=== PATIENT | female | born 1960 | race Caucasian/White ===

== ENCOUNTER 2017-07-06 08:09 | Emergency (ER) | payer OTHER ==
--- NOTE | 2017-07-06 08:20 | PDOC ---
History of Present Illness - General Chief Complaint: Syncope/Near Syncope Stated Complaint: SYNCOPAL EPISODE Time Seen by Provider: 07/06/17 08:12 History Source: Patient Exam Limitations: No Limitations - History of Present Illness Initial Comments: 07/06/17 08:18 57 y/o female presents to the ER with a syncopal episode. Denies chest pain, palpitations, back pain, N/V/D, fever or chills. No headache or head injury. No SOB. Feels fine now. Went down stairs and was going up stairs when she had some abdominal cramping and passed out. Patient states that she at times gets abdominal cramping and suffers from constipation. However, no abdominal pain. Severity: mild Associated Symptoms: denies: cough, fever/chills, headaches, nausea/vomiting, shortness of breath Past History - Past Medical History Allergies/Adverse Reactions: Allergies Allergy/AdvReac Type Severity Reaction Status Date / Time No Known Allergies Allergy Unverified 07/06/17 09:10 Home Medications: Ambulatory Orders Bisacodyl [Dulcolax] 5 mg PO PRN 07/06/17 Multivit-Min/Iron Fum/Folic AC [Rtfpv-Dxjphvo-Cotcivbj Tablet] 1 each PO DAILY 07/06/17 Ubidecarenone [Co Q-10] 100 mg PO DAILY 07/06/17 Review of Systems - Review of Systems Able to Perform ROS?: Yes Is the patient limited Bangladeshi proficient: No Constitutional: No: Chills, Fever HEENTM: No: Blurred Vision Respiratory: No: Cough, Shortness of Breath Cardiac (ROS): No: Chest Pain, Lightheadedness, Palpitations ABD/GI: No: Nausea, Vomiting : No: Dysuria Musculoskeletal: No: Back Pain All Other Systems: Reviewed and Negative *Physical Exam - Physical Exam General Appearance: Yes: Nourished, Appropriately Dressed. No: Apparent Distress HEENT: positive: EOMI, OLIVER, Normal ENT Inspection, Normal Voice, Pharynx Normal Neck: positive: Trachea midline, Normal Thyroid, Supple. negative: Rigid Respiratory/Chest: positive: Lungs Clear, Normal Breath Sounds. negative: Chest Tender, Respiratory Distress Cardiovascular: positive: Regular Rhythm, Regular Rate, S1, S2. negative: Edema , JVD, Murmur Vascular Pulses: Femoral (R): 4+, Femoral (L): 4+, Carotid (R): 4+, Carotid (L) : 4+, Dorsalis-Pedis (R): 4+, Doralis-Pedis (L): 4+ Gastrointestinal/Abdominal: positive: Normal Bowel Sounds, Flat, Soft. negative : Tender, Organomegaly, Pulsatile Mass Lymphatic: negative: Adenopathy, Tenderness, Other Musculoskeletal: positive: Normal Inspection. negative: CVA Tenderness Extremity: positive: Normal Capillary Refill, Normal Inspection, Normal Range of Motion Integumentary: positive: Normal Color, Dry, Warm Neurologic: positive: electrophysiology scientist II-XII NML intact, Fully Oriented, Alert, Normal Mood/ Affect (strength 5+/5 b/l in UE and LE, no foacl deficits noted), Normal Response, Motor Strength 5/5 Heart Score/ECG Review - History History: Slightly suspicious - Electrocardiogram EKG: Normal - Age Age: 45-65 - Risk Factors Based on the list above the patient has:: No risk factors known - ECG Intrepretation Rhythm: Regular Rhythm Comment:: 07/06/17 08:22 NSR at 71, no STEMI - ECG Impressions Normal ECG: Yes ED Treatment Course - LABORATORY CBC & Chemistry Diagram: 07/06/17 08:57 07/06/17 08:57 - ADDITIONAL ORDERS Additional order review: 07/06/17 10:19 Pt is feeling better, labs normal. Will discharge patient. Pt is in agreement with plan. May have had a vasovagal symcope If worsen return to ER 07/06/17 10:21 CT head negative for bleed CXR NAD *DC/Admit/Observation/Transfer Diagnosis at time of Disposition: Vasovagal syncope - Discharge Dispostion Disposition: HOME Condition at time of disposition: Stable Admit: No - Referrals - Patient Instructions Printed Discharge Instructions: DI for Syncope in Adults (Fainting) Additional Instructions: Fluids, rest, Tylenol If worsen return to ER - Post Discharge Activity Forms/Work/School Notes: Back to Work
[2017-07-06 09:05] LABS: PLATELET COUNT 262 K/MM3 (134-434); WHITE BLOOD COUNT 7.9 K/mm3 (4.0-10.8)
[2017-07-06 09:14] LABS: BASO % 0.5 % (0-2.0); EOS % 1.3 % (0-4.5); HEMATOCRIT 37.7 % (32.4-45.2); LYMPH % 20.2 % (8-40); MCH 28.1 pg (25.7-33.7); MCHC 31.8 g/dl (32.0-36.0); MEAN CELL VOLUME 88.3 fl (80-96); MEAN PLT VOLUME 9.9 fl (7.5-11.1); MONO % 6.1 % (3.8-10.2); NEUT % 71.9 % (42.8-82.8); RBC 4.27 M/mm3 (3.60-5.2); RDW 14.2 % (11.6-15.6)
[2017-07-06 09:29] VITALS: TEMP 98.5; BMI 23.0
[2017-07-06 10:10] LABS: ALBUMIN 3.6 g/dl (3.5-5.0); ALK PHOS 64 U/L (32-92); ANION GAP 8 (8-16); BILIRUBIN,TOTAL 0.5 mg/dl (0.2-1.0); BLOOD UREA NITROGEN 12 mg/dl (7-18); CALCIUM 9.1 mg/dl (8.4-10.2); CHLORIDE 103 mmol/L (98-107); CO2 24 mmol/L (22-28); CREATININE 0.8 mg/dl (0.6-1.3); GLUCOSE,RANDOM 110 mg/dl (74-106); POTASSIUM 3.5 mmol/L (3.5-5.1); SGOT/AST 37 U/L (10-42); SGPT/ALT 29 U/L (10-40); SODIUM 135 mmol/L (136-145); TOT PROT 6.3 g/dl (6.4-8.3)
[2017-07-06 10:28] VITALS: BP 120/73; PULSE 70
--- NOTE | 2017-07-07 15:56 | EKG ---
Test Reason : Blood Pressure : / mmHG Vent. Rate : 069 BPM Atrial Rate : 069 BPM P-R Int : 182 ms QRS Dur : 086 ms QT Int : 400 ms P-R-T Axes : 067 056 060 degrees QTc Int : 428 ms NORMAL SINUS RHYTHM NO PREVIOUS ECGS AVAILABLE Confirmed by MD CHLOE, SAVANNAH ([id number]) on 07/07/2017 3:56:04 PM Referred By: BONILLA SANDERSON Confirmed By:SAVANNAH CORONA MD
== END 2017-07-06 10:38 | disposition home or self-care (01) ==
LOC: FER 08:09
DX: R55 Syncope and collapse (principal)
CPT/HCPCS: 36415; 70450-TC; 71045-TC; 80053; 84484; 85025; 93005; 99284-25

== ENCOUNTER 2019-03-04 09:35 | Emergency (ER) | payer OTHER ==
[2019-03-04 09:43] VITALS: BP 122/83; PULSE 77; TEMP 98.8; BMI 25.6
--- NOTE | 2019-03-04 10:21 | PDOC ---
History of Present Illness - General Chief Complaint: Pain, Acute Stated Complaint: RIGHT WRIST PAIN Time Seen by Provider: 03/04/19 09:38 - History of Present Illness Initial Comments: 03/04/19 10:00 58yo F no PMH presents from home with 1 week of pain and swelling along ulnar side of dorsal R forearm and wrist. Gradual onset, constant, worsening, wakes up from pain, associated swelling of ulnar side of forearm/wrist and tingling of hand at night, worse with wrist movement, no improvement with vaporub or serbian ointment, no medications tried. Denies trauma or heavy lifting or excessive typing or repetitive movements. Denies hx of similar sx. L-handed. Works as teacher and lifts heavy books. Denies numbness, weakness, decreased ROM , warmth, elbow pain, hand pain, fever, chills, fatigue, headache, dizziness, vision changes, shortness of breath, cough, chest pain, palpitations, leg swelling, abdominal pain, blood in stool, diarrhea, constipation, nausea, vomiting, dysuria, hematuria, confusion. Past History - Past Medical History Allergies/Adverse Reactions: Allergies Allergy/AdvReac Type Severity Reaction Status Date / Time No Known Allergies Allergy Verified 03/04/19 09:37 Home Medications: Ambulatory Orders Bisacodyl [Dulcolax] 5 mg PO PRN 07/06/17 Multivit-Min/Iron Fum/Folic AC [Xctqz-Vjuyqea-Xqhmehth Tablet] 1 each PO DAILY 07/06/17 Ibuprofen 600 mg PO TID PRN 7 Days #21 tablet 03/04/19 COPD: No Thyroid Disease: No Other medical history: pt denies - Psycho Social/Smoking Cessation Hx Smoking History: Never smoked Have you smoked in the past 12 months: No Information on smoking cessation initiated: No Hx Alcohol Use: No Drug/Substance Use Hx: No Substance Use Type: None Review of Systems - Review of Systems Comments:: 03/04/19 10:00 Constitutional: Negative for chills, fever, fatigue. HENT: Negative for sore throat, rhinorrhea, congestion. Eyes: Negative for visual disturbance. Respiratory: Negative for shortness of breath, cough, and wheezing. Cardiovascular: Negative for chest pain, palpitations, and leg swelling. Gastrointestinal: Negative for abdominal pain, blood in stool, constipation, diarrhea, nausea, and vomiting. Genitourinary: Negative for dysuria, flank pain, and hematuria. Musculoskeletal: Positive for R wrist/forearm swelling and pain. Negative for myalgias, back pain, and neck pain. Skin: Negative for rash. Neurological: Negative for light-headedness, dizziness, syncope, weakness, numbness and headaches. Psychiatric/Behavioral: Negative for behavioral problems and confusion. *Physical Exam - Vital Signs Last Vital Signs Temp Pulse Resp BP Pulse Ox 98.8 F 77 18 122/83 99 03/04/19 09:35 03/04/19 09:35 03/04/19 09:35 03/04/19 09:35 03/04/19 09:35 - Physical Exam Comments: 03/04/19 10:00 Gen: Alert, NAD, comfortable-appearing. HEENT: PERRL, EOMI, MMM, NCAT. No conjunctival pallor. Sclera are non-icteric. CV: Regular rate and rhythm. No murmurs, rubs, or gallops. PULM: No resp distress. CTAB, no wheezes, rales, or rhonchi. ABD: soft, NT/ND, no rebound tenderness or guarding, no CVA tenderness. BACK: No TTP of c/t/l-spine. No step-offs or deformities. MSK: No bony deformities. 2+ pulses in all extremities. NEURO: AAOx3. PERRL. No gross CN deficits. Strength and sensation grossly intact throughout. EXTREMITIES: No cyanosis. No clubbing. No calf tenderness. RUE: No trauma or deformity. Full ROM of elbow, wrist, and finger joints. Sensation to light touch intact throughout. 5/5 strength throughout. Pulses intact. Normal capillary refill. Mild swelling, erythema, warmth, nodularity, and TTP along tendons along ulnar side of forearm and wrist. Pain with ulnar and radial deviation of wrist. PSYCH: Normal mood and thought pattern. SKIN: Warm and dry. Normal capillary refill. No rashes. No jaundice. Medical Decision Making - Medical Decision Making 03/04/19 10:00 58yo F no PMH presents from home with 1 week of pain, tenderness, and inflammation along ulnar side of dorsal R forearm and wrist. Hemodynamically stable, afebrile. Full ROM of elbow, wrist, and finger joints. RUE neurovascularly intact. No trauma or deformity concerning for fx or dislocation. Inflammation (mild swelling, erythema, and warmth), pain with ulnar and radial deviation of wrist, and nodularity of tendon along ulnar side of forearm and wrist consistent with tendinitis. -Apply splint with FABIÁN wrap -Ibuprofen -Work note -Dispo: d/c home w/ortho f/u 03/04/19 10:13 Ulnar gutter splint applied. Distally neurovascularly intact. Pain improved s/p ibuprofen. Will dc home with ortho f/u. Return precautions given. Pt understands all dc instructions and all questions were answered. Discharge - Discharge Information Problems reviewed: Yes Clinical Impression/Diagnosis: Tendinitis Condition: Stable Disposition: HOME - Admission No - Additional Discharge Information Prescriptions: Ibuprofen 600 mg PO TID PRN 7 Days #21 tablet PRN Reason: Pain - Follow up/Referral Referrals: Clint Cottrell MD [Primary Care Provider] - Alexander Mansfield [Non Staff, Medical] - Junior Auguste MD [Non Staff, Medical] - Santiago Gifford MD [Staff Physician] - - Patient Discharge Instructions Patient Printed Discharge Instructions: DI for Tendinitis Additional Instructions: You have been seen in the Emergency Department for your right wrist pain. Your exam shows no sign of fracture or dislocation. You most likely have tendinitis ( inflammation of a tendon). This pain will most likely resolve on its own with rest, ibuprofen, and gentle ice massage. We have given you referrals to multiple Orthopedic Surgeons for further management. Call one of them to make an appointment within 1 week. We have prescribed you ibuprofen for pain and inflammation. Take as directed, 600mg three times a day. Follow the RICE protocol to help with the healing process: R - Rest. Rest and protect the injured or sore area. Stop, change, or take a break from any activity that may be causing your pain or soreness. I - Ice. Cold will reduce pain and swelling. Apply an ice or cold pack right away to prevent or minimize swelling. Apply the ice or cold pack for 10 to 20 minutes, 3 or more times a day. After 48 to 72 hours, if swelling is gone, apply heat to the area that hurts. Do not apply ice or heat directly to the skin. Place a towel over the cold or heat pack before applying it to the skin. C - Compression. Compression, or wrapping the injured or sore area with the splint we provided and an elastic bandage (such as an Fabián wrap), will help decrease swelling. Don't wrap it too tightly, because this can cause more swelling below the affected area. Loosen the bandage if it gets too tight. Signs that the bandage is too tight include numbness, tingling, increased pain, coolness, or swelling in the area below the bandage. E - Elevation. Elevate the injured or sore area on pillows while applying ice and anytime you are sitting or lying down. Try to keep the area at or above the level of your heart to help minimize swelling. Return to the ED immediately if you experience worsening pain not controlled by ibuprofen, numbness or tingling, weakness, fever, worsening swelling, or any other new or worsening symptom. - Post Discharge Activity Work/Back to School Note: Back to Work
--- NOTE | 2019-03-04 10:36 | PDOC ---
Attending Attestation - Resident Resident Name: Josi Ko - ED Attending Attestation I have performed the following: I have examined & evaluated the patient, The case was reviewed & discussed with the resident, I agree w/resident's findings & plan, Exceptions are as noted - HPI HPI: 03/04/19 10:36 Pain ulnar aspect of right wrist and forearm. 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 Left hand is dominant. No acute trauma. No distal numbness tingling or weakness - Physicial Exam PE: 03/04/19 10:37 Examination of the right wrist reveals mild swelling and nodularity of the tendons of the forearm and wrist, ulnar aspect. Mild erythema and heat. Pain with stretch. No distinct masses. Pulses full. No distal sensory or motor deficits. - Medical Decision Making 03/04/19 10:38 [place]: Acute tendinitis Plan: Ulnar gutter splint applied, patient comfortable after application, no distal numbness tingling weakness. Good capillary refill. Good finger motion. Anti-inflammatory prescribed. Ice recommended. Orthopedic referral if no improvement. Patient comfortable and in no significant pain or other distress at discharge to follow-up as directed
== END 2019-03-04 10:30 | disposition home or self-care (01) ==
LOC: FER 09:35
PROC: 2W3CX1Z Immobilization of Right Lower Arm using Splint (ICD-10-PCS; principal; 2019-03-04)
DX: M77.9 Enthesopathy, unspecified (principal)
CPT/HCPCS: 29125; 99284-25

== ENCOUNTER 2020-02-22 17:38 | Emergency (ER) | payer BC, OTHER ==
--- NOTE | 2020-02-22 17:47 | PDOC ---
History of Present Illness - General Chief Complaint: Pain Stated Complaint: RIGHT LOW ABD "SWELLING", RT BUTTOCK "BURNING" Time Seen by Provider: 02/22/20 17:41 History Source: Patient Exam Limitations: No Limitations - History of Present Illness Travel History: No Initial Comments: 02/22/20 18:21 59y F presents with complaint of abd swelling and occasional R leg burning. Pt notes occasionally, she will have a pain in her R buttock that seems worse when she is laying on it. She denies any associated back pain, recent trauma/falls, worsening with bending over, dysuria, frequency, difficulty ambulating, focal numbnes/stingling/weakness. She currently does not have pain unless she is laying on it. This has been going on intermittently for 2 days. Today, pt was showering and noticed some possible assymetry on her Rlower abdominal wall when compared to her L. She denies any associated abdominal pain, n/v, fever/chills, diarrhea, obstipation. No prior abd surgeries. She does note that she has been dealing with constipation her entire life - notse that she goes once every few days and usually needs to strain. She did have a bowel movement this morning. She had a colonscopy ~5 years ago and was normal. She denies any recent history of heavy lifting. She deos not notice any protruding masses from her abdomen, only when she palpates it when she is standing. She has no vaginal symtomsi. she dnies any other symptmos including cp, sob, f/c, cough, joe, PMD: Dr. Cottrell Social history: denies etoh, smoking, recreational drugs surgical hx: chapito abd surgeries Past History - Medical History Allergies/Adverse Reactions: Allergies Allergy/AdvReac Type Severity Reaction Status Date / Time No Known Allergies Allergy Verified 02/22/20 17:40 Home Medications: Ambulatory Orders L.acidoph,Paracasei, B.lactis [Probiotic] 1 each PO DAILY 02/22/20 Psyllium Husk/Calcium Carb [Metamucil Plus Calcium Capsule] 1 each PO 1XPACU #1 box 02/22/20 COPD: No Thyroid Disease: No Other medical history: pt denies - Reproductive History Is Patient Now?: No - Psycho-Social/Smoking History Smoking History: Never smoked Have you smoked in the past 12 months: No Information on smoking cessation initiated: No - Substance Abuse Hx (Audit-C & DAST Scrn) How often the patient has a drink containing alcohol: Never Score: In Men: 4 or > Positive; In Women: 3 or > Positive: 0 Screen Result (Pos requires Nsg. Audit-10AR): Negative In the last yr the pt used illegal drug/Rx for NonMed reason: No Score: Yes response is considered Positive: 0 Screen Result (Positive result requires Nsg. DAST-10): Negative Review of Systems - Review of Systems Able to Perform ROS?: Yes Comments:: 02/22/20 18:25 Constitutional - no reported Fever, Chills, HEENT: no reported vision changes, sore throat Respiratory: no reported cough, sob, hemoptysis Cardiac: no reported chest pain, palpitations, light headedness, leg swelling Abd/GI: +Constipation, abd swelling, no reported abd pain, nausea, vomiting, blood per rectum, melena, diarrhea : no reported dysuria, frequency, discharge Musculskelatal - intermtitent R buttock burning no reported back pain, joint swelling skin - no reported bruising, erythema, rash neurological: no reported headache, numbness, focal weakness, tingling, ataxia, hematologic: no reported easy bruising, easy bleeding *Physical Exam - Vital Signs Last Vital Signs Temp Pulse Resp BP Pulse Ox 98 F 66 18 138/87 100 02/22/20 17:38 02/22/20 17:38 02/22/20 17:38 02/22/20 17:38 02/22/20 17:38 - Physical Exam 02/22/20 18:25 GENERAL: The patient is awake, alert, and fully oriented, Nontoxic - in no acute distress. HEAD: Normocephalic, atraumatic. EYES: extraocular movements intact, sclera anicteric, conjunctiva clear. ENT: Normal voice, Moist mucous membranes. NECK: Normal range of motion, supple LUNGS: Breath sounds equal, clear to auscultation bilaterally. No wheezes, no rhonchi, no rales. HEART: Regular rate and rhythm, normal S1 and S2 without murmur, rub or gallop. ABDOMEN: Soft, nontender, No guarding, no rebound. No CVA tenderness, no obvious masses noted, no hepatomegaly or splenomegaly, neg rovsings, neg tenderness at mcburnies, no eg murphies, some mild assymettry noted when pt is bearing down when standing in RLQ in lower abd rectus sheath EXTREMITIES: Normal range of motion, no edema. No rashes on buttock, mild tenderness when pressed on R buttock at gluteus cee NEUROLOGICAL: No facial assymetry, Normal speech, PSYCH: Normal mood, normal affect. SKIN: Warm, Dry, normal turgor, Medical Decision Making - Medical Decision Making 02/22/20 18:27 burning: suspect sciatica, no rashes no focal bony or lumbar tenderness, symptoms seems reprocubile when sciatica nerve exits gluteus cee. no red flags abd swelling: no tendenress or sx suggestive of acute abd, obstruction, or surgical emergency (no pain/discomfort at all), there seems to be very slight assymetry when she bears down on the RLQ, there may be a slight weakness in the rectus sheath. No obvious hernias palpable. this may be related to her chronic constipation. discussed strategies to improve her BM regiment/habits including regular excercise, hdyration, fiber intake. will have pt fu with GI discussed return precautions icnulding any abd pain, signs of obstruction or other surgical emergencies. I discussed the physical exam findings, ancillary test results and final d iagnoses with the patient. I answered all of the patient's questions. The patient was satisfied with the care received and felt comfortable with the discharge plan and treatment plan. The patient will call their primary care physician within 24 hours to arrange follow-up and will return to the Emergency Department with any new, persistent or worsening symptoms. Discharge - Discharge Information Problems reviewed: Yes Clinical Impression/Diagnosis: Abdominal swelling, right lower quadrant Constipation Qualifiers: Constipation type: unspecified constipation type Qualified Code(s): K59.00 - Constipation, unspecified Sciatica Qualifiers: Laterality: right Qualified Code(s): M54.31 - Sciatica, right side Condition: Stable Disposition: HOME - Admission No - Additional Discharge Information Prescriptions: Psyllium Husk/Calcium Carb [Metamucil Plus Calcium Capsule] 1 each PO 1XPACU #1 box - Follow up/Referral Referrals: Clint Cottrell MD [Primary Care Provider] - Lenny Marie MD [Staff Physician] - - Patient Discharge Instructions Patient Printed Discharge Instructions: DI for Constipation Additional Instructions: Return to the emergency department immediately with ANY new, persistent or worsening symptoms including worsening abdominal pain, fevers, inability to tolerate oral intake, chest pain, shortness of breath or any other concerns. I suspect your swelling is due to a small hernia. There is no signs of obstruction or incarceration. If you have a painful mass or you have any vomiting, inability to have a bowel movement, fevers, pain or other concerns, return immediately for reevaluation. Make sure you stay well hdyrated, eat lots of fiber, excercise to improve your constipation. Follow up with a Associate. Your emergency department visit is not complete without a followup with your doctor for reevaluation. Please make sure your doctor reviews the results of your emergency evaluation. Print Language: ARMENIAN - Post Discharge Activity
[2020-02-22 17:49] VITALS: BP 138/87; PULSE 66; TEMP 98; BMI 24.7
== END 2020-02-22 18:34 | disposition home or self-care (01) ==
LOC: FER 17:38
DX: K59.00 Constipation, unspecified (principal); M54.31 Sciatica, right side
CPT/HCPCS: 99282-25

== ENCOUNTER 2020-02-24 18:16 | Emergency (ER) | payer OTHER ==
[2020-02-24 18:26] VITALS: BP 141/83; PULSE 70; TEMP 98.3; BMI 24.7
--- NOTE | 2020-02-24 18:34 | PDOC ---
History of Present Illness - General Chief Complaint: Pain, Acute Stated Complaint: RIGHT BUTTOX PAIN/ABD SWELLING - History of Present Illness Initial Comments: The pt is a 59F who presents for evaluation of RLQ abdominal pain/fullness, that is intermittent, radiates to her groin and upper abdomen, and is not exacerbated or alleviated by anything she can identify. She endorses R buttock pain/pressure as well that she believes is related. She denies trauma, strain, heavy lifting, obstipation, fall, or changes in strength. The pt also reports abdominal asymmetry. She states she notices R lower abdominal fullness, especially when standing. It is not tender but heavy. She denies fevers/chills, chest pain, N/V, diarrhea, dysuria, hematuria, back pain PSH: BTL PMD: Dr. Cottrell 02/24/20 18:35 Past History - Medical History Allergies/Adverse Reactions: Allergies Allergy/AdvReac Type Severity Reaction Status Date / Time No Known Allergies Allergy Verified 02/27/20 10:41 Home Medications: Ambulatory Orders L.acidoph,Paracasei, B.lactis [Probiotic] 1 each PO DAILY 02/22/20 Psyllium Husk/Calcium Carb [Metamucil Plus Calcium Capsule] 1 each PO 1XPACU #1 box 02/22/20 Valacyclovir HCl [Valtrex] 1,000 mg PO TID #21 tablet 02/27/20 COPD: No Thyroid Disease: No Other medical history: PT DENIES - Reproductive History Is Patient Now?: No - Psycho-Social/Smoking History Smoking History: Never smoked Have you smoked in the past 12 months: No - Substance Abuse Hx (Audit-C & DAST Scrn) How often the patient has a drink containing alcohol: Never Score: In Men: 4 or > Positive; In Women: 3 or > Positive: 0 Screen Result (Pos requires Nsg. Audit-10AR): Negative In the last yr the pt used illegal drug/Rx for NonMed reason: No Score: Yes response is considered Positive: 0 Screen Result (Positive result requires Nsg. DAST-10): Negative Review of Systems - Review of Systems Able to Perform ROS?: Yes Comments:: GENERAL/CONSTITUTIONAL: No fever or chills. No weakness HEAD, EYES, EARS, NOSE AND THROAT: No change in vision. No change in hearing. No sore throat CARDIOVASCULAR: No chest pain or shortness of breath RESPIRATORY: Denies cough, hemoptysis GASTROINTESTINAL: No nausea, vomiting, diarrhea GENITOURINARY: No dysuria, frequency, or change in urination MUSCULOSKELETAL: No joint or muscle swelling or pain SKIN: No rash NEUROLOGIC: No headache, vertigo, loss of consciousness, or change in strength/sensation ENDOCRINE: No increased thirst. No abnormal weight change HEMATOLOGIC/LYMPHATIC: No anemia, easy bleeding, or history of blood clots ALLERGIC/IMMUNOLOGIC: No hives or skin allergy 02/24/20 18:39 Is the patient limited [place] proficient: No *Physical Exam - Vital Signs Last Vital Signs Temp Pulse Resp BP Pulse Ox 98.3 F 70 17 141/83 100 02/24/20 18:18 02/24/20 18:18 02/24/20 18:18 02/24/20 18:18 02/24/20 18:18 - Physical Exam GENERAL: Awake, alert, and oriented to person/place/time, in no acute distress HEAD: No signs of trauma, normocephalic, atraumatic EYES: PERRLA, EOMI, sclera anicteric, conjunctiva clear ENT: Hearing grossly normal, nares patent, oropharynx clear without exudates. No uvular deviation. Moist mucosa LUNGS: No distress, speaks in full sentences, clear to auscultation bilaterally HEART: Regular rate and rhythm, normal S1 and S2, no murmurs appreciated, peripheral pulses normal and equal bilaterally ABDOMEN: Soft, fullness noted in RLQ while pt is standing, no palpable defect, nontender, negative obturator sign, negative rovsing sign, psoas sign, normoactive bowel sounds EXTREMITIES: Normal inspection, Normal range of motion, no edema. No clubbing or cyanosis NEUROLOGICAL: Cranial nerves II through XII grossly intact. Normal speech, normal gait, no focal sensorimotor deficits SKIN: Warm, Dry 02/24/20 18:40 ED Treatment Course - LABORATORY CBC & Chemistry Diagram: 02/24/20 18:36 02/24/20 18:36 Medical Decision Making - Medical Decision Making The pt is a 59F who presents for evaluation of RLQ abdominal pain and R buttock pain for 4-5 days Ddx: constipation, hernia, appendicitis, UTI/pyelo, MSK, neuropathy, abdominal wall weakness, not likely ovarian torsion or TOA ED Course CMP, CBC CT A&P Pt does not want pain meds at this time 02/24/20 18:42 Pt pending imaging and labs Pt signed out to night team Discharge - Discharge Information Problems reviewed: Yes Clinical Impression/Diagnosis: RLQ abdominal pain Condition: Stable Disposition: HOME - Admission No - Follow up/Referral Referrals: Clint Cottrell MD [Primary Care Provider] - - Patient Discharge Instructions Patient Printed Discharge Instructions: DI for Abdominal Pain-Adult Additional Instructions: Return to the emergency department immediately with ANY new, persistent or worsening symptoms. Continue any medications as previously prescribed by your physician. You should follow up with your primary doctor as soon as possible regarding today's emergency department visit. . Please make sure your doctor reviews the results of your emergency evaluation. Thank you for coming to the Emergency Department today for your care. It was a pleasure to see you today. Please note that your evaluation is INCOMPLETE until you follow-up with your doctor. - Post Discharge Activity Work/Back to School Note: Back to Work
[2020-02-24 18:49] LABS: BASO % 1.6 % (0-2.0); LYMPH % 32.8 % (8-40); MCH 28.8 pg (25.7-33.7); MCHC 32.5 g/dl (32.0-36.0); MEAN CELL VOLUME 88.7 fl (80-96); MONO % 5.9 % (3.8-10.2); NEUT % 57.7 % (42.8-82.8); PLATELET COUNT 296 K/MM3 (134-434); RBC 4.51 M/mm3 (3.60-5.2); RDW 13.5 % (11.6-15.6); WHITE BLOOD COUNT 9.5 K/mm3 (4.0-10.8)
[2020-02-24 19:01] LABS: ALBUMIN 4.2 g/dl (3.4-5.0); BILIRUBIN,TOTAL 0.5 mg/dl (0.2-1); CALCIUM 9.3 mg/dl (8.5-10); CREATININE 0.8 mg/dl (0.55-1.3); POTASSIUM 3.7 mmol/L (3.5-5.1); TOT PROT 7.4 g/dl (6.4-8.2)
--- NOTE | 2020-02-24 19:07 | PDOC ---
Attending Attestation - Resident Resident Name: Jose Manuel Vergara - ED Attending Attestation I have performed the following: I have examined & evaluated the patient, The case was reviewed & discussed with the resident, I agree w/resident's findings & plan, Exceptions are as noted - HPI HPI: 02/24/20 19:05 59 years old with no significant past medical history presents to the emergency department for right lower quadrant abdominal pain and fullness. Intermittent comes and goes severe in nature when it occurs very concerned this is now her second visit for same - Physicial Exam PE: 02/24/20 19:06 Vitals: Triage Vital signs reviewed General Appearance: No acute distress, well nourished well developed, Head: Atraumatic, Cardiac: Regular rate and rhythym, no murmurs, no rubs, no gallops, Lungs: Clear to auscultation bilateral, good air movement bilaterally, Abdomen: Soft, non distended, normal bowel sounds, non tender to palpation Musculoskeletal: Mild right CVA tenderness mild right paraspinal low back tenderness Extremities: Full range of motion to all extremities, no cyanosis, clubbing, or edema Skin: Warm and dry, no rashes or lesions, no rash, no petechiae Neuro: AOX3; cranial Nerves 2-12 grossly intact, strength intact to all extremities, sensation intact to all extremities, gait normal Psych: Normal mood, normal affect - Medical Decision Making 02/24/20 19:06 Right lower quadrant tenderness to palpation no rebound no guarding 59 years old complaining of moderate to severe right lower quadrant pain second visit for same we will check labs CT observe and reassess Dr. Courtney Enciso to follow-up results reassess and dispel. Discharge - Discharge Information Problems reviewed: Yes Clinical Impression/Diagnosis: RLQ abdominal pain Condition: Stable Disposition: HOME - Follow up/Referral Referrals: Clint Cottrell MD [Primary Care Provider] - - Patient Discharge Instructions Patient Printed Discharge Instructions: DI for Abdominal Pain-Adult Additional Instructions: Return to the emergency department immediately with ANY new, persistent or worsening symptoms. Continue any medications as previously prescribed by your physician. You should follow up with your primary doctor as soon as possible regarding today's emergency department visit. . Please make sure your doctor reviews the results of your emergency evaluation. Thank you for coming to the Emergency Department today for your care. It was a pleasure to see you today. Please note that your evaluation is INCOMPLETE until you follow-up with your doctor. - Post Discharge Activity Work/Back to School Note: Back to Work
[2020-02-24] MEDS ORDERED: KETOROLAC TROMETHAMINE 30 MG/1 ML VIAL IVPUSH ONE (21:22)
[2020-02-24] MEDS ORDERED: KETOROLAC TROMETHAMINE 30 MG/1 ML VIAL ONE (21:22)
--- NOTE | 2020-02-24 21:42 | PDOC ---
*Physical Exam - Vital Signs Last Vital Signs Temp Pulse Resp BP Pulse Ox 98.3 F 70 17 141/83 100 02/24/20 18:18 02/24/20 18:18 02/24/20 18:18 02/24/20 18:18 02/24/20 18:18 ED Treatment Course - LABORATORY CBC & Chemistry Diagram: 02/24/20 18:36 02/24/20 18:36 - ADDITIONAL ORDERS Additional order review: Laboratory Results 02/24/20 18:36 Sodium 136 Potassium 3.7 Chloride 102 Carbon Dioxide 25 Anion Gap 9 BUN 16.0 Creatinine 0.8 Est GFR (CKD-EPI)AfAm 94.85 Est GFR (CKD-EPI)NonAf 81.84 Random Glucose 63 L Calcium 9.3 Total Bilirubin 0.5 AST 23 ALT 19 Alkaline Phosphatase 69 Total Protein 7.4 Albumin 4.2 02/24/20 18:36 RBC 4.51 MCV 88.7 MCHC 32.5 RDW 13.5 MPV 10.0 Neutrophils % 57.7 Lymphocytes % 32.8 Monocytes % 5.9 Eosinophils % 2.0 Basophils % 1.6 - Medications Given in the ED: ED Medications Discontinued Medications Generic Name Dose Route Start Last Admin Trade Name Freq PRN Reason Stop Dose Admin Ketorolac Tromethamine 30 mg 02/24/20 21:22 02/24/20 21:26 Toradol Injection - IVPUSH 02/24/20 21:23 30 mg ONCE ONE Administration ED Progress Note - Progress Note Progress Note: 02/24/20 21:41 She was transferred to md from Dr. Ventura and the resident at 1900 hrs.. Patient is waiting results of the CAT scan. CAT scan was read as a hiatal hernia and some gastric distention otherwise no acute intra-abdominal pathology Patient discharged home and given copy of CAT scan Discharge - Discharge Information Problems reviewed: Yes Clinical Impression/Diagnosis: RLQ abdominal pain Condition: Stable Disposition: HOME - Admission No - Follow up/Referral Referrals: Clint Cottrell MD [Primary Care Provider] - - Patient Discharge Instructions Patient Printed Discharge Instructions: DI for Abdominal Pain-Adult Additional Instructions: Return to the emergency department immediately with ANY new, persistent or worsening symptoms. Continue any medications as previously prescribed by your physician. You should follow up with your primary doctor as soon as possible regarding today's emergency department visit. . Please make sure your doctor reviews the results of your emergency evaluation. Thank you for coming to the Emergency Department today for your care. It was a pleasure to see you today. Please note that your evaluation is INCOMPLETE until you follow-up with your doctor. - Post Discharge Activity
== END 2020-02-24 21:54 | disposition home or self-care (01) ==
LOC: FER 18:16
PROC: 3E0333Z Introduction of Anti-inflammatory into Peripheral Vein, Percutaneous Approach (ICD-10-PCS; principal; 2020-02-24)
DX: R10.31 Right lower quadrant pain (principal)
CPT/HCPCS: 36415; 74177-TC; 80053; 85025; 99285-25; Q9967

== ENCOUNTER 2020-08-25 17:21 | Emergency (ER) | payer BC, OTHER ==
[2020-08-25 17:44] VITALS: BP 98/65; PULSE 83; TEMP 98.3; BMI 22.6
[2020-08-25] MEDS ORDERED: ACETAMINOPHEN 500 MG TABLET (FP) PO ONE (17:55)
[2020-08-25] MEDS ORDERED: IBUPROFEN 600 MG TABLET (FP) PO ONE ×2 (17:55→18:00)
[2020-08-25] MEDS ORDERED: ACETAMINOPHEN 325 MG TABLET (FP) ONE (18:00)
== END 2020-08-25 18:37 | disposition home or self-care (01) ==
LOC: JER 17:21
DX: U07.1 COVID-19 (principal)
CPT/HCPCS: 71046-TC-FY; 99283-25

== ENCOUNTER 2021-03-12 20:08 | Emergency (ER) | payer BC ==
[2021-03-12 20:31] VITALS: BP 107/64; PULSE 96; TEMP 98.9; BMI 23.0
[2021-03-12] MEDS ORDERED: IBUPROFEN 600 MG TABLET (FP) PO ONE ×2 (22:45→22:46)
[2021-03-12 23:38] LABS: EPI CELLS 6 /uL (0-25.1); HYALINE CASTS 1 /uL (0-3.1); URINE APPEARANCE CLEAR; URINE BACTERIA 918 /uL (0-1359); URINE BILIRUBIN NEGATIVE (NEGATIVE); URINE COLOR YELLOW; URINE GLUCOSE (UA) NEGATIVE (NEGATIVE); URINE KETONE NEGATIVE (NEGATIVE); URINE LEUK ESTERASE 1+ (NEGATIVE); URINE NITRITE NEGATIVE (NEGATIVE); URINE PROTEIN NEGATIVE (NEGATIVE); URINE RBC 22 /uL (0-23.9); URINE UROBILINOGEN 0.2 mg/dL (0.2-1.0); URINE WBC 72 /uL (0-25.8)
== END 2021-03-12 23:00 | disposition home or self-care (01) ==
LOC: JERFT 20:08
DX: J06.9 Acute upper respiratory infection, unspecified (principal); N30.00 Acute cystitis without hematuria; Z11.52 Encounter for screening for COVID-19
CPT/HCPCS: 81003; 87086; 87186; 99283-25; C9803; U0003; U0005